=== PATIENT | female | born 1950 | race Caucasian/White ===

== ENCOUNTER 2017-04-20 08:38 | Inpatient (IN) | payer MEDICARE ==
[~2017-04-20] VITALS: Ht 162.6 cm; Wt 96.5 kg
[~2017-04-20 08:38] MED LIST: ALBU90OI INH; ATOR20 PO; CALCAVITD PO; CARV6.25 PO; CONESTTC VAG; CYCL10 PO; Carvedilol12.5 MG PO; ERGO400 PO; FAMO40 PO; FLUSAL2505 INH; FOLATE PO; FURO20 PO; GLUC500 PO; GLUCHON PO; HYDACE5 PO; LEVO750 PO; METF500 PO; MULVITMIND PO; OLME20-12. PO; POTCHL10ER PO; PRED20 PO; ROSU10TA PO; ROSU5 PO; TOCO400 PO; VALS80 PO; WARF5 PO; WARF7.5 PO
[2017-04-20 09:40] LABS: BASOPHILS ABSOLUTE AUTO 0.02 K/mm3 (0.00-0.23); BASOPHILS PERCENT AUTO 0 % (0-2); EOSINOPHILS ABSOLUTE AUTO 0.05 K/mm3 (0.00-0.68); EOSINOPHILS PERCENT AUTO 1 % (0-6); Hematocrit 44.8 % (33.0-51.0); Hemoglobin 14.3 g/dL (11.5-16.0); IMMATURE GRAN ABSOLUTE AUTO 0.02 K/mm3 (0.00-0.10); IMMATURE GRAN PERCENT AUTO 0 % (0-1); LYMPHOCYTES ABSOLUTE AUTO 1.17 K/mm3 (0.84-5.20); LYMPHOCYTES PERCENT AUTO 20 % (21-46); MONOCYTES ABSOLUTE AUTO 1.58 K/mm3 (0.16-1.47); MONOCYTES PERCENT AUTO 27 % (4-13); Mean Corpuscular HGB 32.8 pg (26.0-34.0); Mean Corpuscular HGB Conc 31.9 g/dL (31.5-36.5); Mean Corpuscular Volume 103 fL (80-100); Mean Platelet Volume 10.1 fL (9.1-12.4); NEUTROPHILS ABSOLUTE AUTO 2.94 K/mm3 (1.96-9.15); NEUTROPHILS PERCENT AUTO 51 % (41-73); Platelet Count 254 K/mm3 (150-400); RDW Coefficient Variation 15.1 % (11.7-14.2); Red Blood Cell Count 4.36 M/mm3 (3.80-5.20); White Blood Cell Count 5.78 K/mm3 (4.00-11.30)
[2017-04-20 09:58] LABS: Alanine Aminotransfer (ALT/SGP 51 U/L (12-78); Albumin, Blood 3.3 g/dL (3.4-5.0); Albumin/Globulin Ratio 0.8 (0.8-1.8); Alk Phos 74 U/L (50-136); Anion Gap 7 mmol/L (6-16); Aspartate Aminotrans (AST/SGOT 54 U/L (12-37); Bilirubin, Total 0.3 mg/dL (0.1-1.0); Blood Urea Nitrogen 14 mg/dL (8-24); Bun/Creatinine Ratio 21.9 (12.0-20.0); CO2, Blood 27 mmol/L (21-32); Calcium, Blood 8.1 mg/dL (8.5-10.1); Chloride, Blood 107 mmol/L (98-108); Creatinine, Blood 0.64 mg/dL (0.40-1.00); Globulin, Blood 3.9 g/dL (2.2-4.0); Glomerular Filtration Rate >60 (60-); Glucose, Blood 141 mg/dL (70-99); Potassium, Blood 3.9 mmol/L (3.5-5.5); Sodium, Blood 141 mmol/L (136-145); Total Protein, Blood 7.2 g/dL (6.4-8.2); Troponin I <0.015 ng/mL (0.000-0.040)
[2017-04-20 10:01] LABS: Influenza A Positive (NEGATIVE); Influenza B Negative (NEGATIVE)
[2017-04-20] MEDS ORDERED: B-121000 MC2 PO (15:35)
[2017-04-21 05:14] LABS: International Normalized Ratio 1.88; Prothrombin Time Results 19.9 Sec (9.7-11.5)
[2017-04-21 05:21] LABS: Anion Gap 8 mmol/L (6-16); Blood Urea Nitrogen 19 mg/dL (8-24); CO2, Blood 26 mmol/L (21-32); Calcium, Blood 8.2 mg/dL (8.5-10.1); Chloride, Blood 108 mmol/L (98-108); Creatinine, Blood 0.59 mg/dL (0.40-1.00); Glomerular Filtration Rate >60 (60-); Glucose, Blood 137 mg/dL (70-99); Potassium, Blood 4.1 mmol/L (3.5-5.5); Sodium, Blood 142 mmol/L (136-145)
[2017-04-25 09:15] LABS: BASOPHILS ABSOLUTE AUTO 0.03 K/mm3 (0.00-0.23); BASOPHILS PERCENT AUTO 1 % (0-2); EOSINOPHILS PERCENT AUTO 2 % (0-6); Hematocrit 42.6 % (33.0-51.0); Hemoglobin 13.5 g/dL (11.5-16.0); IMMATURE GRAN ABSOLUTE AUTO 0.02 K/mm3 (0.00-0.10); IMMATURE GRAN PERCENT AUTO 0 % (0-1); LYMPHOCYTES ABSOLUTE AUTO 1.44 K/mm3 (0.84-5.20); LYMPHOCYTES PERCENT AUTO 22 % (21-46); MONOCYTES ABSOLUTE AUTO 1.09 K/mm3 (0.16-1.47); MONOCYTES PERCENT AUTO 16 % (4-13); Mean Corpuscular HGB 31.5 pg (26.0-34.0); Mean Corpuscular HGB Conc 31.7 g/dL (31.5-36.5); Mean Platelet Volume 9.7 fL (9.1-12.4); NEUTROPHILS ABSOLUTE AUTO 3.97 K/mm3 (1.96-9.15); NEUTROPHILS PERCENT AUTO 60 % (41-73); Platelet Count 309 K/mm3 (150-400); RDW Coefficient Variation 14.1 % (11.7-14.2); RDW Standard Deviation 51.1 fL (35.1-46.3); Red Blood Cell Count 4.28 M/mm3 (3.80-5.20); White Blood Cell Count 6.65 K/mm3 (4.00-11.30)
[2017-04-25 09:23] LABS: Mean Corpuscular Volume 100 fL (80-100)
[2017-04-25 09:28] LABS: International Normalized Ratio 1.12; Prothrombin Time Results 11.7 Sec (9.7-11.5)
[2017-04-25 09:30] LABS: Anion Gap 8 mmol/L (6-16); Blood Urea Nitrogen 12 mg/dL (8-24); Bun/Creatinine Ratio 21.6 (12.0-20.0); CO2, Blood 29 mmol/L (21-32); Calcium, Blood 8.5 mg/dL (8.5-10.1); Chloride, Blood 105 mmol/L (98-108); Creatinine, Blood 0.56 mg/dL (0.40-1.00); Glomerular Filtration Rate >60 (60-); Glucose, Blood 186 mg/dL (70-99); Sodium, Blood 142 mmol/L (136-145)
[2017-04-25] MEDS ORDERED: K-Dur20 MEQ PO (16:37)
[2017-04-25] MEDS ORDERED: ACET500 PO (16:39)
[2017-04-25] MEDS ORDERED: DOCU100 PO (16:40)
[2017-04-25] MEDS ORDERED: Mucinex600 MG PO (16:40)
[2017-04-25] MEDS ORDERED: HYDR1TAB94 PO (16:41)
[2017-04-25] MEDS ORDERED: Milk Of Ma400 MG/5 M PO (16:42)
[2017-04-25] MEDS ORDERED: CYCL10 PO (16:43)
[2017-04-25] MEDS ORDERED: Flovent Disku100 MCG INH (16:44)
== END 2017-04-25 17:14 | disposition home or self-care (01) | DRG 551 ==
LOC: ER 08:38 → MEDS 08:39 → ER 08:39 → MEDS 13:57 → ER 13:57 → MEDS 15:03
PROVIDERS: Emergency Medicine; Family Medicine; Internal Medicine Endocrinology, Diabetes & Metabolism
PROC: 0HQ0XZZ Repair Scalp Skin, External Approach (ICD-10-PCS; 2017-04-20)
PROC: 4A12X4Z Monitoring of Cardiac Electrical Activity, External Approach (ICD-10-PCS; principal; 2017-04-21)
DX: S12.100A Unspecified displaced fracture of second cervical vertebra, initial encounter for closed fracture (principal); J96.01 Acute respiratory failure with hypoxia; J09.X1 Influenza due to identified novel influenza A virus with pneumonia; J18.9 Pneumonia, unspecified organism; R55 Syncope and collapse; E11.9 Type 2 diabetes mellitus without complications; E66.9 Obesity, unspecified; I10 Essential (primary) hypertension; M19.90 Unspecified osteoarthritis, unspecified site; R05 Cough; R50.9 Fever, unspecified; S01.01XA Laceration without foreign body of scalp, initial encounter; Z79.01 Long term (current) use of anticoagulants; Z85.6 Personal history of leukemia; Z86.718 Personal history of other venous thrombosis and embolism; W01.0XXA Fall on same level from slipping, tripping and stumbling without subsequent striking against object, initial encounter; Y92.012 Bathroom of single-family (private) house as the place of occurrence of the external cause; Z79.84 Long term (current) use of oral hypoglycemic drugs; G47.33 Obstructive sleep apnea (adult) (pediatric)
CPT/HCPCS: 12002; 36415; 70450; 70498; 71045; 72125; 80048; 80053; 82607; 82746; 82947; 84484; 85025; 85610; 87070; 87205; 87804; 93005; 93010; 93306; 94762; 96360; 96374; 96375; 96376; 97116; 97162; 97166; 97530; 97535; 99285; G0378; G8978; G8979; G8987; G8988; J1170; J2405; J7030; Q9967

== ENCOUNTER 2018-08-13 08:26 | Day surgery (SDC) | payer MEDICARE ==
[~2018-08-13] VITALS: Ht 162.6 cm; Wt 97.8 kg
[~2018-08-13 08:26] MED LIST changes: +ACET500 PO; +B-121000 MC2 PO; +Benicar40 MG PO; +DOCU100 PO; +Flovent Disku100 MCG INH; +HYDR1TAB94 PO; +K-Dur20 MEQ PO; +Milk Of Ma400 MG/5 M PO; +Mucinex600 MG PO; +XARELTO20 MG PO
--- NOTE | 2018-08-13 08:56 | NUR ---
IHNTO SDS ADMITTED TO UNIT Ambulatory in Day Surgery History, Chart, Medications and Allergies reviewed before start of procedure.Patient confirms NPO status and agrees with scheduled surgery.
--- NOTE | 2018-08-13 09:00 | NUR ---
Ambulatory in Day SurgeryPatient states colon prep results clear. History, Chart, Medications and Allergies reviewed before start of procedure.LUNGS DIMINISHED IN LEFT LOWER LOBE. Patient confirms NPO status and agrees with scheduled surgery. Patient States Post-Procedure ride home has been arranged.
--- NOTE | 2018-08-13 09:30 | NUR ---
08/13/18 0930 Parag Montero PATIENT DETERMINED TO BE ASA APPROPRIATE FOR PROPOFOL SEDATION PRIOR TO START OF PROCEDURE BY . 3-LEAD EKG REVIEWED WITH PHYSICIAN PRIOR TO START OF PROCEDURE.PATIENT CONFIRMS NPO STATUS AND AGREES WITH SCHEDULED PROCEDURE.History, Chart, Medications and Allergies reviewed before start of procedure.MONITOR INTACT WITH CONTINUOUS PULSE OXIMETRY AND INTERMITTENT BP.O2 VIA N/C INTACT THROUGHOUT SEDATION/PROCEDURE.
--- NOTE | 2018-08-13 10:23 | NUR ---
ASSUMED CARE FROM BEATRIZ WELLS RN AT 1005. PT AWAKE AND DRINKING WATER WITHOUT DIFFICULTY.
--- NOTE | 2018-08-13 10:48 | NUR ---
Patient up to Ambulate independently. Gait steady. Discharge instructions reviewed with patient. Patient verbalizes understanding. Copy given to patient to take home. Patient States Post-Procedure ride home has been arranged. Discharged via wheelchair to private car for ride home. GLASSES AND ALL OTHER BELONGIGNS RETURNED TO PATIENT.
== END 2018-08-14 22:39 | disposition home or self-care (01) ==
LOC: ORSCMMR 08:26 → ORD 09:30 → ORSCMMR 08-14 22:39
PROC: 0DBK8ZX Excision of Ascending Colon, Via Natural or Artificial Opening Endoscopic, Diagnostic (ICD-10-PCS; principal; 2018-08-14)
DX: Z12.11 Encounter for screening for malignant neoplasm of colon (principal); K63.5 Polyp of colon; Z86.010 Personal history of colon polyps; E11.9 Type 2 diabetes mellitus without complications; I10 Essential (primary) hypertension; E78.00 Pure hypercholesterolemia, unspecified; Z85.6 Personal history of leukemia; Z79.01 Long term (current) use of anticoagulants; Z79.84 Long term (current) use of oral hypoglycemic drugs; Z79.899 Other long term (current) drug therapy
CPT/HCPCS: 82947; 88305; J2704; J7120

== ENCOUNTER 2020-02-17 07:38 | Emergency (ER) | payer MEDICARE ==
[~2020-02-17] VITALS: Ht 162.6 cm; Wt 96.2 kg
[~2020-02-17 07:38] MED LIST changes: +BACL10 PO; +CLOB.05TO; +CONEST.625; +LIDO700A20 TOP; +Valium5 MG PO
[2020-02-17] MEDS ORDERED: METTREX2.5 PO ×2 (08:03→08:04)
[2020-02-17] MEDS ORDERED: Valium5 MG PO (12:03)
[2020-02-17] MEDS ORDERED: Percocet 5-3251 EACH PO (12:03)
[2020-02-17 14:04] LABS: Source, Urine Clean Catch
[2020-02-17 14:10] LABS: Bilirubin, Urine Neg (Neg); Blood, Urine Neg (Neg); Color, Urine Yellow (P-Yellow); Glucose Qualitative, Urine Neg (Neg); Ketones, Urine 2+ (Neg); Leukocyte Esterase, Urine 2+ (Neg); Nitrite, Urine Neg (Neg); Protein, Urine 1+ (Neg); Specific Gravity, Urine 1.015 (1.003-1.022); Urobilinogen, Urine NORM (Normal)
[2020-02-17 14:47] LABS: Appearance, Urine Hazy (Clear)
[2020-02-17 14:48] LABS: Bacteria Few /hpf; Red Blood Cells, Urine 0-2 /hpf (0-2); Squamous Epithelial Cells Rare /hpf (Few)
[2020-02-17 14:49] LABS: Mucus Light (0-Heavy)
== END 2020-02-17 15:06 | disposition home or self-care (01) ==
LOC: ER 07:38
PROVIDERS: Physician Assistant
DX: M54.5 Low back pain (principal); G89.29 Other chronic pain; I10 Essential (primary) hypertension; E11.9 Type 2 diabetes mellitus without complications; Z88.1 Allergy status to other antibiotic agents; Z88.0 Allergy status to penicillin; Z91.09 Other allergy status, other than to drugs and biological substances; Z88.8 Allergy status to other drugs, medicaments and biological substances; Z79.899 Other long term (current) drug therapy; Z79.84 Long term (current) use of oral hypoglycemic drugs; Z79.01 Long term (current) use of anticoagulants
CPT/HCPCS: 71046; 74176; 81001; 87086; 96372; 99284-25; A9270-GY; J1885

== ENCOUNTER 2020-07-12 13:05 | Observation (INO) | payer MEDICARE ==
[~2020-07-12] VITALS: Ht 162.6 cm; Wt 95.2 kg
[~2020-07-12 13:05] MED LIST changes: +ATOR10 PO; -ATOR20 PO; +GLUCOPHAGE1000 M1 PO; +Hair, Skin & N1 EACH PO; +METTREX2.5 PO; +Percocet 5-3251 EACH PO
[2020-07-12] MEDS ORDERED: Avapro300 MG PO (13:33)
[2020-07-12 14:08] LABS: International Normalized Ratio 1.56; Prothrombin Time Results 16.3 Sec (9.7-11.5)
[2020-07-12 14:33] LABS: Source, Urine Clean Catch
[2020-07-12 14:40] LABS: Appearance, Urine Clear (Clear); Bilirubin, Urine Neg (Neg); Blood, Urine Neg (Neg); Color, Urine Yellow (P-Yellow); Glucose Qualitative, Urine Neg (Neg); Ketones, Urine Neg (Neg); Leukocyte Esterase, Urine 2+ (Neg); Nitrite, Urine Neg (Neg); Protein, Urine Neg (Neg); Specific Gravity, Urine 1.015 (1.003-1.022); Urobilinogen, Urine NORM (Normal)
[2020-07-12 15:03] LABS: Bacteria Few /hpf; Red Blood Cells, Urine 0-2 /hpf (0-2); Squamous Epithelial Cells Few /hpf (Few)
--- NOTE | 2020-07-12 19:30 | NUR ---
TRANSFER NOTE/SHIFT SUMMARY PT ARRIVED TO MEDICAL FLOOR FOR ADMIT AT APPROX 1642. PT AxOx4. PLEASANT AND COOPERATIVE WITH CARE. ADMISSION COMPLETE. PT REPORTS NO CP AT THIS TIME. PLAN FOR STRESS TEST TOMORROW AM 07/13/20. PT INFORMED NPO AFTER MIDNIGHT FOR TEST. PT GIVEN SNACKS UPON ADMIT AND DINNER TRAY ORDERED FROM [employer]. TELE IN PLACE, RUNNING AT SR HIGH 80'S, PER MINISTER. SCD'S ON. PT INDEPENDENT IN THE ROOM. VITALS REVIEWED. CURRENTLY RESTING IN BED WITH CALL LIGHT IN REACH.
[2020-07-12] MEDS ORDERED: DICLOFENAC SOD100 G1 TOP (22:02)
--- NOTE | 2020-07-13 04:03 | NUR ---
SHIFT SUMMARY ADMITTED FOR CHEST PAIN. FULL CODE. PLAN IS FOR A STRESS TEST THIS MORNING. PT IS NPO FOR BREAKFAST. TELEMETRY: NSR @ 88 BPM. SHE STATES SHE HAS FELT CONSTIPATION. SHE TAKES XARELTO AT HOME - WHICH IS BEING HELD HERE. SHE DOES TAKE METHOTREXATE FOR RA. SHE DID REQUEST TYLENOL FOR A HEADACHE ONCE THIS SHIFT.
[2020-07-13 05:29] LABS: BASOPHILS ABSOLUTE AUTO 0.03 K/mm3 (0.00-0.23); BASOPHILS PERCENT AUTO 1 % (0-2); EOSINOPHILS ABSOLUTE AUTO 0.24 K/mm3 (0.00-0.68); EOSINOPHILS PERCENT AUTO 4 % (0-6); Hematocrit 39.5 % (33.0-51.0); Hemoglobin 12.7 g/dL (11.5-16.0); IMMATURE GRAN ABSOLUTE AUTO 0.02 K/mm3 (0.00-0.10); IMMATURE GRAN PERCENT AUTO 0 % (0-1); LYMPHOCYTES ABSOLUTE AUTO 1.83 K/mm3 (0.84-5.20); LYMPHOCYTES PERCENT AUTO 28 % (21-46); MONOCYTES ABSOLUTE AUTO 1.56 K/mm3 (0.16-1.47); MONOCYTES PERCENT AUTO 24 % (4-13); Mean Corpuscular HGB 33.5 pg (26.0-34.0); Mean Corpuscular HGB Conc 32.2 g/dL (31.5-36.5); Mean Corpuscular Volume 104 fL (80-100); Mean Platelet Volume 9.8 fL (9.1-12.4); NEUTROPHILS ABSOLUTE AUTO 2.89 K/mm3 (1.96-9.15); NEUTROPHILS PERCENT AUTO 44 % (41-73); NRBC ABSOLUTE 0.11 K/mm3 (0.00-0.02); NRBC Auto 1.7 /100 WBC (0.0-0.2); Platelet Count 301 K/mm3 (150-400); RDW Coefficient Variation 16.4 % (11.7-14.2); RDW Standard Deviation 60.6 fL (35.1-46.3); Red Blood Cell Count 3.79 M/mm3 (3.80-5.20); White Blood Cell Count 6.57 K/mm3 (4.00-11.30)
[2020-07-13 06:11] LABS: Anion Gap 5 mmol/L (6-16); Blood Urea Nitrogen 14 mg/dL (8-24); Bun/Creatinine Ratio 24.5 (12.0-20.0); CO2, Blood 30 mmol/L (21-32); Chloride, Blood 110 mmol/L (98-108); Creatinine, Blood 0.57 mg/dL (0.40-1.00); Glomerular Filtration Rate >60 (60-); Glucose, Blood 97 mg/dL (70-99); Magnesium, Blood 2.2 mg/dL (1.6-2.4); Potassium, Blood 4.2 mmol/L (3.5-5.5); Sodium, Blood 145 mmol/L (136-145)
--- NOTE | 2020-07-13 19:44 | NUR ---
SHIFT SUMMARY- PT HAS HAD NO ACUTE CHANGE T/O THE SHIFT. FIRST PORTION OF THE STRESS TEST COMPLETED TODAY, PT TO BE NPO AT MIDNIGHT PLAN IS FOR THE SECOND PORTION OF THE STRESS TEST TOMORROW AT 0700. PT IS AWARE OF NPO AT MIDNIGHT. PT IN BED CALL LIGHT IN REACH, BEDSIDE REPORT COMPLETED WITH NIGHT RN.
--- NOTE | 2020-07-14 07:33 | NUR ---
SHIFT SUMMARY: A&OX4, NPO SINCE MI FOR SECOND PART OF STRESS TEST THIS AM. REPORTS THREE MOMENTARY EPISODES OF CHEST TIGHTENING THAT DID NOT SUSTAIN, NO VS OR TELEMTRY CHANGES OBSERVED. IV SITE IN RAC WAS ITCHY DUE TO SITE DRESSING WAS CHANGED AND ICE APPLIED FOR COMFORT. PATIENT REPORTED GOOD EFFECT. PATIENT DECLINNED A RESTART.
[2020-07-14] MEDS ORDERED: CEFP200 PO (13:17)
--- NOTE | 2020-07-14 14:57 | NUR ---
DISCHARGE NOTE- PT DISCHARGED HOME AFTER STRESS TEST WAS COMPLETED. IV AND TELE DC'D AT THE TIME OF DISCHARGE. PT WAS GIVEN VERBAL AND WRITTEN DISCHARGE INSTRUCTIONS AND ACKNOWLEDGED UNDERSTANDING OF THEM. MEDS FAXED TO [facility] PER PT REQUEST. [facility] WILL CALL THE PT WITH FOLLOW UP APPOINTMENT SCHEDULE, PT IS AWARE. PT ESCORTED OUT VIA WC, NO FURTHER QUESTIONS, NO S&S OF DISTRESS NOTED.
--- NOTE | 2020-07-14 15:10 | NUR ---
ADMIT: 07/12/20 DISCHARGE: 07/14/20 DX: chest pain CC: [email or web address] ADMIT: 04/20/17 DISCHARGE: 04/25/17 [facility] CALL: met with patient and the day before and day of discharge, call her for trino RESIDENCE: home with CAREGIVER: self and DX: cervical fracture, flu, pneumonia, htn, dvt, dm2 thrombophlebitis, see prob list. DME: 04/25 set up with nocturnal oxygen and commode- [employer] CCM: no record HOME HEALTH: 07/14/20 not homebound at this time. ordered [facility], OT, pt, nurse SUMMARY: admit 07/12/20 07/14/20 Met with Anna prior to discharge, reviewed discharge checklist, discussed need for home health services, not home bound. Gave her trino letter and let her know we would call on Saturday or Saturday to schedule 1 week follow up with TR[facility] physician. Did not identify any care needs at home. available to help her with all aspects of care. cp 07/13/[address] Correa, stress test planned for today. ETA discharge SAT or . cp 1: Chest pain A/P: Atypical, chest pain-free at this moment
== END 2020-07-14 14:30 | disposition home or self-care (01) ==
LOC: ER 13:05 → ERHOLD 13:06 → ER 13:06 → ERHOLD 13:07 → MEDS 13:07 → ERHOLD 16:42 → MEDS 16:42 → ERHOLD 16:48 → MEDS 16:48
PROVIDERS: Emergency Medicine; Physician Assistant; ADMIT Internal Medicine
DX: R07.89 Other chest pain (principal); E11.9 Type 2 diabetes mellitus without complications; I10 Essential (primary) hypertension; M06.9 Rheumatoid arthritis, unspecified; N39.0 Urinary tract infection, site not specified; B95.4 Other streptococcus as the cause of diseases classified elsewhere; C92.00 Acute myeloblastic leukemia, not having achieved remission; E78.5 Hyperlipidemia, unspecified; K21.9 Gastro-esophageal reflux disease without esophagitis; E66.8 Other obesity; Z88.1 Allergy status to other antibiotic agents; Z88.0 Allergy status to penicillin; Z88.8 Allergy status to other drugs, medicaments and biological substances; Z91.048 Other nonmedicinal substance allergy status; Z86.718 Personal history of other venous thrombosis and embolism; Z79.01 Long term (current) use of anticoagulants; Z82.49 Family history of ischemic heart disease and other diseases of the circulatory system; Z68.36 Body mass index [BMI] 36.0-36.9, adult; Z79.84 Long term (current) use of oral hypoglycemic drugs; R79.89 Other specified abnormal findings of blood chemistry; M54.5 Low back pain; G89.29 Other chronic pain
CPT/HCPCS: 36415; 71046; 78452; 80048; 80053; 81001; 82947; 83735; 83880; 84484; 85025; 85610; 85730; 87086; 93005; 93010; 93017; 93306; 99285-25; A9270; A9500; G0378; J2785; J8610

== ENCOUNTER 2020-08-20 05:44 | Emergency (ER) | payer MEDICARE ==
[~2020-08-20] VITALS: Ht 162.6 cm; Wt 96.6 kg
[~2020-08-20 05:44] MED LIST changes: +Avapro300 MG PO; +CEFP200 PO; +DICLOFENAC SOD100 G1 TOP
== END 2020-08-20 07:14 | disposition home or self-care (01) ==
LOC: ER 05:44
DX: M62.830 Muscle spasm of back (principal); Z79.899 Other long term (current) drug therapy; Z88.0 Allergy status to penicillin; Z88.1 Allergy status to other antibiotic agents; Z91.09 Other allergy status, other than to drugs and biological substances; Z88.5 Allergy status to narcotic agent
CPT/HCPCS: 96372; 99283-25; A9270; J1885

== ENCOUNTER → 2021-01-18 | Outpatient (CLI) | payer MEDICARE | LOC: LAB 10:40 → LAB SHORT 10:40 | DX: N39.0 Urinary tract infection, site not specified (principal); Z88.0 Allergy status to penicillin; Z88.5 Allergy status to narcotic agent; Z88.1 Allergy status to other antibiotic agents; Z91.048 Other nonmedicinal substance allergy status | CPT/HCPCS: 87086 ==

== ENCOUNTER → 2021-07-03 | Outpatient (CLI) | payer MEDICARE ==
[~2021-07-03] MED LIST changes: +ALEN70 PO; +FOLI1 PO; +Norflex100 MG
== END ==
LOC: PLD 07:20 → LAB SHORT 07:20
DX: B35.1 Tinea unguium (principal); L60.2 Onychogryphosis
CPT/HCPCS: 88305; 88312

== ENCOUNTER 2021-07-04 04:56 | Emergency (ER) | payer MEDICARE ==
[~2021-07-04] VITALS: Ht 162.6 cm; Wt 97.1 kg
[~2021-07-04 04:56] MED LIST changes: -ALEN70 PO; -FOLI1 PO; -Norflex100 MG
[2021-07-04] MEDS ORDERED: BACL10 PO (05:14)
[2021-07-04] MEDS ORDERED: ALEN70 PO (05:14)
[2021-07-04] MEDS ORDERED: FOLI1 PO (05:15)
[2021-07-04] MEDS ORDERED: Norflex100 MG (05:16)
[2021-07-04] MEDS ORDERED: GLUCHON PO (05:18)
== END 2021-07-04 07:48 | disposition home or self-care (01) ==
LOC: ER 04:56
DX: M62.830 Muscle spasm of back (principal); G89.29 Other chronic pain; Z88.8 Allergy status to other drugs, medicaments and biological substances; Z88.0 Allergy status to penicillin; Z88.1 Allergy status to other antibiotic agents; Z91.048 Other nonmedicinal substance allergy status; Z79.899 Other long term (current) drug therapy; Z79.84 Long term (current) use of oral hypoglycemic drugs; I10 Essential (primary) hypertension; E11.9 Type 2 diabetes mellitus without complications; E78.5 Hyperlipidemia, unspecified; K21.9 Gastro-esophageal reflux disease without esophagitis; M19.90 Unspecified osteoarthritis, unspecified site
CPT/HCPCS: 96372; 99283-25; A9270; J1885

== ENCOUNTER 2021-10-12 16:25 | Emergency (ER) | payer MEDICARE ==
[~2021-10-12] VITALS: Ht 162.6 cm; Wt 95.2 kg
[~2021-10-12 16:25] MED LIST changes: +ALEN70 PO; +FOLI1 PO; +Norflex100 MG
[2021-10-12] MEDS ORDERED: VALIUM PO (18:20)
== END 2021-10-12 18:34 | disposition home or self-care (01) ==
LOC: ER 16:25
DX: M54.9 Dorsalgia, unspecified (principal); I10 Essential (primary) hypertension; E11.9 Type 2 diabetes mellitus without complications; E78.5 Hyperlipidemia, unspecified; K21.9 Gastro-esophageal reflux disease without esophagitis; Z79.84 Long term (current) use of oral hypoglycemic drugs; Z79.899 Other long term (current) drug therapy; Z88.0 Allergy status to penicillin; Z91.09 Other allergy status, other than to drugs and biological substances; Z88.1 Allergy status to other antibiotic agents
CPT/HCPCS: A9270; J1885

== ENCOUNTER 2022-10-14 02:56 | Emergency (ER) | payer OTHER ==
[~2022-10-14] VITALS: Ht 162.6 cm; Wt 91.2 kg
[~2022-10-14 02:56] MED LIST changes: +VALIUM PO
[2022-10-14 03:22] VITALS: BP 151/98
== END 2022-10-14 05:19 | disposition home or self-care (01) ==
LOC: ER 02:56
DX: G89.29 Other chronic pain (principal); M54.50 Low back pain, unspecified; I10 Essential (primary) hypertension; E11.9 Type 2 diabetes mellitus without complications; E78.5 Hyperlipidemia, unspecified; Z88.1 Allergy status to other antibiotic agents; Z88.0 Allergy status to penicillin; Z88.8 Allergy status to other drugs, medicaments and biological substances; Z91.048 Other nonmedicinal substance allergy status; Z88.5 Allergy status to narcotic agent; Z79.01 Long term (current) use of anticoagulants; Z79.84 Long term (current) use of oral hypoglycemic drugs; Z79.899 Other long term (current) drug therapy
CPT/HCPCS: 96372; 99283-25; A9270; J1885

== ENCOUNTER 2023-03-27 19:20 | Emergency (ER) | payer OTHER ==
[~2023-03-27] VITALS: Ht 162.6 cm; Wt 91.6 kg
[2023-03-27] MEDS ORDERED: CYCL10 PO (19:39)
[2023-03-27 20:15] VITALS: BP 164/72
== END 2023-03-27 20:23 | disposition home or self-care (01) ==
LOC: ER 19:20
DX: M62.830 Muscle spasm of back (principal); S29.012A Strain of muscle and tendon of back wall of thorax, initial encounter; M06.9 Rheumatoid arthritis, unspecified; I10 Essential (primary) hypertension; E11.9 Type 2 diabetes mellitus without complications; E78.5 Hyperlipidemia, unspecified; Z88.0 Allergy status to penicillin; Z88.1 Allergy status to other antibiotic agents; Z88.5 Allergy status to narcotic agent; Z88.8 Allergy status to other drugs, medicaments and biological substances; Z91.048 Other nonmedicinal substance allergy status; Z79.84 Long term (current) use of oral hypoglycemic drugs; Z79.01 Long term (current) use of anticoagulants; Z79.899 Other long term (current) drug therapy; Z79.631 Long term (current) use of antimetabolite agent; X58.XXXA Exposure to other specified factors, initial encounter
CPT/HCPCS: 96372; 99283-25; A9270; J1885

== ENCOUNTER 2023-10-08 06:02 | Day surgery (SDC) | payer OTHER ==
[~2023-10-08] VITALS: Ht 162.6 cm; Wt 93.5 kg
[2023-10-08] MEDS ORDERED: Lactated Ringer's 1,000 ML IV SCH (06:10)
[2023-10-08 07:35] VITALS: BP 144/91
[2023-10-08] MEDS ORDERED: propofoL 60 ML IV ONE (07:58)
--- NOTE | 2023-10-08 08:13 | NUR ---
10/08/23 0813 Lowell Urbina History, Chart, Medications and Allergies reviewed before start of procedure.MONITOR INTACT WITH CONTINUOUS PULSE OXIMETRY, CONTINUOUS END TITAL CO2, AND INTERMITTENT BLOOD PRESSURE.3-LEAD EKG REVIEWED WITH PHYSICIAN PRIOR TO START OF PROCEDURE.O2 VIA POM INTACT THROUGHOUT SEDATION/PROCEDURE.See Anesthesia record.
[2023-10-08 08:41] VITALS: BP 110/57
[2023-10-08 08:51] VITALS: BP 120/70
--- NOTE | 2023-10-08 09:11 | NUR ---
Discharge instructions reviewed with patient. Patient verbalizes understanding. Copy given to patient to take home. Patient up to Ambulate independently. Gait steady. Discharged via wheelchair to private car for ride home.
== END 2023-10-08 09:00 | disposition home or self-care (01) ==
LOC: ORSCMMR 06:02 → ORD 07:30 → ORSCMMR 08:00 → ORD 08:00 → ORSCMMR 09:00
PROVIDERS: Internal Medicine Gastroenterology
PROC: 0DBK8ZX Excision of Ascending Colon, Via Natural or Artificial Opening Endoscopic, Diagnostic (ICD-10-PCS; principal; 2023-10-08 08:00)
DX: Z12.11 Encounter for screening for malignant neoplasm of colon (principal); Z86.010 Personal history of colon polyps; K64.4 Residual hemorrhoidal skin tags; K64.8 Other hemorrhoids; K51.40 Inflammatory polyps of colon without complications; E11.9 Type 2 diabetes mellitus without complications; I10 Essential (primary) hypertension; M06.9 Rheumatoid arthritis, unspecified; E78.00 Pure hypercholesterolemia, unspecified; G47.33 Obstructive sleep apnea (adult) (pediatric); I25.10 Atherosclerotic heart disease of native coronary artery without angina pectoris; G57.90 Unspecified mononeuropathy of unspecified lower limb; E66.01 Morbid (severe) obesity due to excess calories; Z68.35 Body mass index [BMI] 35.0-35.9, adult; Z79.01 Long term (current) use of anticoagulants; Z79.84 Long term (current) use of oral hypoglycemic drugs; Z79.899 Other long term (current) drug therapy
CPT/HCPCS: 82947; 88305; J2704; J7120

== ENCOUNTER 2024-01-31 14:05 | Emergency (ER) | payer OTHER ==
[~2024-01-31] VITALS: Ht 162.6 cm; Wt 87.5 kg
[2024-01-31 14:16] VITALS: BP 153/95
[2024-01-31] MEDS ORDERED: Acetaminophen 500 MG Tab PO ONE (22:40)
[2024-01-31] MEDS ORDERED: Ketorolac Tromethamine 15mg Vial IM ONE (22:40)
[2024-01-31] MEDS ORDERED: ACET500 PO (22:49)
== END 2024-01-31 23:16 | disposition home or self-care (01) ==
LOC: ER 14:05
DX: M54.6 Pain in thoracic spine (principal); M54.50 Low back pain, unspecified; Z88.8 Allergy status to other drugs, medicaments and biological substances; Z88.0 Allergy status to penicillin; Z88.1 Allergy status to other antibiotic agents; Z88.5 Allergy status to narcotic agent; Z79.899 Other long term (current) drug therapy; Z79.84 Long term (current) use of oral hypoglycemic drugs; M06.9 Rheumatoid arthritis, unspecified; I10 Essential (primary) hypertension; E11.40 Type 2 diabetes mellitus with diabetic neuropathy, unspecified; E78.5 Hyperlipidemia, unspecified; K21.9 Gastro-esophageal reflux disease without esophagitis
CPT/HCPCS: 20552; 71046; 96372-59; 99283-25; A9270; J1885

== ENCOUNTER → 2024-11-25 | Outpatient (CLI) | payer OTHER ==
[2024-11-26 14:05] LABS: Stool Occult Bld Immuno 1 Positive (NEGATIVE)
== END | disposition home or self-care (01) ==
LOC: LAB 12:00 → LAB SHORT 12:00
PROVIDERS: Internal Medicine
DX: D64.9 Anemia, unspecified (principal)
CPT/HCPCS: 82274

== ENCOUNTER 2025-02-03 08:45 | Day surgery (SDC) | payer OTHER ==
[~2025-02-03] VITALS: Ht 162.6 cm; Wt 86.0 kg
[~2025-02-03 08:45] MED LIST changes: +ARTHRITIS PAIN150 GM TOP; -Avapro300 MG PO; +CARV25 PO; +DIAZ5 PO; +IRBE75 PO
[2025-02-03] MEDS ORDERED: Benzocaine Oral Spray 0.5ML UD ONE (09:41)
[2025-02-03 09:45] VITALS: BP 147/90
--- NOTE | 2025-02-03 10:02 | NUR ---
PRE PROCEDURE NOTE PT A&OX4, BREATHING RA, VSS, NO COMPLAINTS. Ambulatory in Day Surgery Patient confirms NPO status and agrees with scheduled surgery. Pre-Op teaching done. Pt verbalizes understanding. Lungs clear T/O to Auscultation.
--- NOTE | 2025-02-03 10:14 | NUR ---
02/03/25 1014 Ashwin Verdin MONITOR INTACT WITH CONTINUOUS PULSE OXIMETRY, CONTINUOUS END TITAL CO2, 3-LEAD EKG AND INTERMITTENT BLOOD PRESSURE.Bite Block PlacedO2 VIA POM INTACT THROUGHOUT SEDATION/PROCEDURE.DR MARIE PROVIDING ANESTHESIA
[2025-02-03 10:36] VITALS: BP 121/66
--- NOTE | 2025-02-03 10:52 | NUR ---
Discharge instructions reviewed with patient. Patient verbalizes understanding. Copy given to patient to take home. Patient States Post-Procedure ride home has been arranged. Discharged via wheelchair to private car for ride home.
== END 2025-02-03 23:00 | disposition home or self-care (01) ==
LOC: ORSCMMR 08:45 → ORD 10:00 → ORSCMMR 23:00
PROVIDERS: Internal Medicine Gastroenterology
PROC: 0DB98ZX Excision of Duodenum, Via Natural or Artificial Opening Endoscopic, Diagnostic (ICD-10-PCS; principal; 2025-02-03 10:00)
PROC: 0DB78ZX Excision of Stomach, Pylorus, Via Natural or Artificial Opening Endoscopic, Diagnostic (ICD-10-PCS; principal; 2025-02-03 10:00)
PROC: 0DBN8ZX Excision of Sigmoid Colon, Via Natural or Artificial Opening Endoscopic, Diagnostic (ICD-10-PCS; principal; 2025-02-03 10:00)
PROC: 0DBM8ZX Excision of Descending Colon, Via Natural or Artificial Opening Endoscopic, Diagnostic (ICD-10-PCS; principal; 2025-02-03 10:00)
DX: D50.0 Iron deficiency anemia secondary to blood loss (chronic) (principal); K29.70 Gastritis, unspecified, without bleeding; K63.3 Ulcer of intestine; K63.5 Polyp of colon; K63.89 Other specified diseases of intestine; I48.91 Unspecified atrial fibrillation; Z79.01 Long term (current) use of anticoagulants; Z86.0109 Personal history of other colon polyps; E11.9 Type 2 diabetes mellitus without complications; I10 Essential (primary) hypertension; G47.33 Obstructive sleep apnea (adult) (pediatric); Z79.84 Long term (current) use of oral hypoglycemic drugs; Z79.899 Other long term (current) drug therapy; Z85.6 Personal history of leukemia
CPT/HCPCS: 82947; 88305; A9270; J2704; J7120

== ENCOUNTER 2025-02-12 11:35 | Emergency (ER) | payer OTHER ==
[~2025-02-12] VITALS: Ht 162.6 cm; Wt 84.8 kg
[2025-02-12 11:39] VITALS: BP 163/89
[2025-02-12 11:59] LABS: BASOPHILS ABSOLUTE AUTO 0.03 K/mm3 (0.00-0.23); BASOPHILS PERCENT AUTO 0 % (0-2); EOSINOPHILS ABSOLUTE AUTO 0.11 K/mm3 (0.00-0.68); EOSINOPHILS PERCENT AUTO 2 % (0-6); Hematocrit 37.7 % (33.0-51.0); Hemoglobin 11.4 g/dL (11.5-16.0); IMMATURE GRAN ABSOLUTE AUTO 0.01 K/mm3 (0.00-0.10); IMMATURE GRAN PERCENT AUTO 0 % (0-1); LYMPHOCYTES ABSOLUTE AUTO 1.30 K/mm3 (0.84-5.20); LYMPHOCYTES PERCENT AUTO 19 % (21-46); MONOCYTES ABSOLUTE AUTO 1.13 K/mm3 (0.16-1.47); MONOCYTES PERCENT AUTO 17 % (4-13); Mean Corpuscular HGB Conc 30.2 g/dL (31.5-36.5); Mean Corpuscular Volume 91 fL (80-100); NEUTROPHILS ABSOLUTE AUTO 4.19 K/mm3 (1.96-9.15); NEUTROPHILS PERCENT AUTO 62 % (41-73); NRBC ABSOLUTE 0.04 K/mm3 (0.00-0.02); NRBC Auto 0.6 /100 WBC (0.0-0.2); Platelet Count 374 K/mm3 (150-400); RDW Coefficient Variation 20.7 % (11.7-14.2); RDW Standard Deviation 68.8 fL (35.1-46.3)
[2025-02-12 12:19] LABS: Alanine Aminotransfer (ALT/SGP 37.0 U/L (12-78); Albumin, Blood 3.6 g/dL (3.4-5.0); Albumin/Globulin Ratio 0.9 (0.8-1.8); Anion Gap 8.0 mmol/L (3-11); Aspartate Aminotrans (AST/SGOT 36.0 U/L (12-37); Bilirubin, Total 0.3 mg/dL (0.1-1.0); Blood Urea Nitrogen 15.0 mg/dL (8-24); CO2, Blood 28.0 mmol/L (21-32); Calcium, Blood 9.2 mg/dL (8.5-10.1); Chloride, Blood 107.0 mmol/L (98-108); Creatinine, Blood 0.63 mg/dL (0.40-1.00); Globulin, Blood 4.1 g/dL (2.2-4.0); Glucose, Blood 148.0 mg/dL (70-99); Potassium, Blood 3.8 mmol/L (3.5-5.5); Sodium, Blood 139.0 mmol/L (136-145); Total Protein, Blood 7.7 g/dL (6.4-8.2)
== END 2025-02-12 15:43 | disposition home or self-care (01) ==
LOC: ER 11:35
PROVIDERS: Student in an Organized Health Care Education/Training Program
DX: M94.0 Chondrocostal junction syndrome [Tietze] (principal); E11.22 Type 2 diabetes mellitus with diabetic chronic kidney disease; D64.9 Anemia, unspecified; I10 Essential (primary) hypertension; E78.5 Hyperlipidemia, unspecified; K21.9 Gastro-esophageal reflux disease without esophagitis; E11.40 Type 2 diabetes mellitus with diabetic neuropathy, unspecified; Z79.899 Other long term (current) drug therapy; Z79.84 Long term (current) use of oral hypoglycemic drugs; Z88.0 Allergy status to penicillin; Z88.1 Allergy status to other antibiotic agents; Z91.048 Other nonmedicinal substance allergy status; Z88.5 Allergy status to narcotic agent; Z88.8 Allergy status to other drugs, medicaments and biological substances
CPT/HCPCS: 71046; 80053; 84484; 85025; 93005; 93010; 99285-25